=== PATIENT | male | born 1955 | race American Indian/Alaskan Native ===

== ENCOUNTER 2017-02-26 07:53 | Emergency (ER) | payer OTHER ==
[~2017-02-26] VITALS: Ht 175.3 cm; Wt 99.8 kg
== END 2017-02-26 12:52 | disposition home or self-care (01) ==
LOC: ER 07:53
DX: J11.1 Influenza due to unidentified influenza virus with other respiratory manifestations (principal); J06.9 Acute upper respiratory infection, unspecified